=== PATIENT | male | born 1960 | race Caucasian/White ===

== ENCOUNTER → 2022-11-27 | Outpatient (CLI) | payer BC | END | disposition home or self-care (01) | LOC: RAH 08:13 | PROVIDERS: ATTEND Physical Medicine & Rehabilitation | DX: Z01.818 Encounter for other preprocedural examination (principal); M54.6 Pain in thoracic spine; M43.16 Spondylolisthesis, lumbar region; M47.25 Other spondylosis with radiculopathy, thoracolumbar region | CPT/HCPCS: 71046; 72074; 72114 ==

== ENCOUNTER → 2024-10-19 | Outpatient (CLI) | payer BC ==
--- NOTE | 2024-10-21 14:17 | HMCSR ---
APPROVED REPORT EXAM: Two-dimensional and M-mode echocardiogram with Doppler and color Doppler. INDICATION ICD: I48.0 Chronic AF 2D Dimensions RVDd3.8 cmLVEF(%)37.0 (>50%)LVED Vol(simp.)118.9 mL IVSd1.3 (0.7-1.1cm)FS(%)17 %LVES Vol(simp.)54.9 mL LVDd3.8 (3.8-5.6cm)LA (2D)4.6 (1.6-4.0cm)LVEF(%, simp.)54 % PWd1.4 (0.7-1.1cm)Ao Root(2D)3.6 (2.0-3.7cm)LA ESV INDEX (BP)39.71 mL/m2 LVDs3.1 (2.5-4.0cm)LVOT diam2.4 (1.8-2.4cm) IVC diam1.6 cm M-Mode Dimensions EPSS0.2 cm LA (MM)4.7 (1.6-4.0cm) Ao Root(MM)3.0 (2.0-3.7cm) Aortic Valve AoV Vmax1.6 m/Rivka Peak GR10.1 mmHgLVOT Vmax0.9 m/s AoV VTI0.3 mAo Mean GR6.1 mmHgLVOT VTI0.17 m KRISTI (VMAX)2.49 cm2AVA (VTI) 2.4 cm2 Mitral Valve MV E Vmax66.8 cm/sDECEL [id number] ms MV A Vmax20.6 cm/sP 1/2 T41 ms E/A ratio3.2MVA (PHT)5.4 cm2 TDI E/E' Medial9.9E/E' Lateral5.5 Medial E' Peak V6.76 cm/sLateral E' Peak V12.05 cm/s Pulmonary Valve PV Vmax1.0 m/sPV VTI0.18 mPV Mean GR2.1 mmHg PV Peak GR3.6 mmHg Tricuspid Valve TR Vmax2.0 m/sRVSP15.9 mmHg TR Peak GR18.3 mmHg Left Ventricle The left ventricle is normal size. There is normal LV segmental wall motion. Mild concentric left anjum tricular hypertrophy. LVEF is 50-55%. Indeterminate diastolic dysfunction. Right Ventricle The right ventricle is normal size. The right ventricular systolic function is normal. Atria The left atrium is mildly dilated. The right atrium is mildly dilated. Aortic Valve The aortic valve is not well visualized. No aortic regurgitation is present. There is no aortic valvu lar stenosis. Mitral Valve The mitral valve is normal in structure. Mitral regurgitation is trace. There is no mitral valve sten osis. Tricuspid Valve The tricuspid valve is normal in structure. There is trace tricuspid valve regurgitation noted. Pulmonic Valve The pulmonary valve is normal in structure. There is no pulmonic valvular regurgitation. Great Vessels The aortic root is normal in size. The IVC is normal in size and collapses >50% with inspiration. Pericardium There is no pericardial effusion. Conclusion Mild concentric left ventricular hypertrophy. LVEF is 50-55%. There is normal LV segmental wall motion. There is no aortic valvular stenosis. Mitral regurgitation is trace.
== END | disposition home or self-care (01) ==
LOC: RAH 12:41
PROVIDERS: ATTEND Internal Medicine Cardiovascular Disease
DX: I51.7 Cardiomegaly (principal); I48.0 Paroxysmal atrial fibrillation
CPT/HCPCS: 93306

== ENCOUNTER → 2024-11-01 | Outpatient (CLI) | payer BC ==
--- NOTE | 2024-11-01 10:18 | HMCIMG ---
EXAM: CR Chest, 2 View. CLINICAL HISTORY: ABNORMAL ELECTROCARDIOGRAM. COMPARISON: None provided. FINDINGS: LUNGS: The lungs show no infiltrate or other acute finding. PLEURAL SPACES: No pleural effusion or pneumothorax. MEDIASTINUM: The cardiomediastinal silhouette is within normal limits. BONES: Mild degenerative change of the spine. MISCELLANEOUS: Comparison dated 11/27/2022. IMPRESSION: 1. No acute cardiopulmonary findings. 2. Mild degenerative changes of the spine. /[place]
== END | disposition home or self-care (01) ==
LOC: RAH 08:15
PROVIDERS: ATTEND Internal Medicine
DX: I48.92 Unspecified atrial flutter (principal); M47.814 Spondylosis without myelopathy or radiculopathy, thoracic region; R94.31 Abnormal electrocardiogram [ECG] [EKG]
CPT/HCPCS: 71046